=== PATIENT | female | born 1990 ===

== ENCOUNTER 2019-03-17 12:33 | Observation (INO) | payer SELFPAY ==
[2019-03-17] MEDS ORDERED: LACTATED RINGERS 1,000 ML ONE (13:19)
[2019-03-17 13:20] LABS: Hematocrit 38.6 % (30.3-42.9); Mean Corpuscular HGB Conc 34 % (30-34); Mean Corpuscular Volume 87 fl (79-97); Platelet Count 229 K/mm3 (140-440); Red Blood Count 4.44 M/mm3 (3.65-5.03); Red Cell Distribution Width 14.7 % (13.2-15.2)
[2019-03-17 13:46] LABS: Alanine Aminotransferase 15 units/L (7-56); Uric Acid 4.5 mg/dL (3.5-7.6)
[2019-03-17 13:51] LABS: Bacteria,Urine 4+ /HPF (Negative); Bilirubin,Urine NEG (Negative); Blood,Urine NEG (Negative); Color,Urine Straw (Yellow); Protein,Urine <15 mg/dL mg/dL (Negative); Urobilinogen,Urine < 2.0 mg/dL (<2.0)
[2019-03-17] MEDS ORDERED: MAGNESIUM SULFATE 4 GM/100 ML BAG IV ONE (14:26)
[2019-03-17] MEDS ORDERED: AMPICILLIN 2 GM in SODIUM CHLORIDE 0.9% 50 ML IV ONE (14:32)
[2019-03-17] MEDS ORDERED: AMPICILLIN/NS 2 GM/100 ML 2 GM/100 ML BAG IV ONE ×2 (15:00→18:17)
[2019-03-17] MEDS: BETAMET ACET/BETAMET NA PH 6 MG/ML INJ 5 ML MDV IM SCH (17:36)
--- NOTE | 2019-03-17 18:22 | Ultrasound Report ---
ULTRASOUND OBSTETRIC INDICATION / CLINICAL INFORMATION: jeffry. Clinical Gestational Age (GA): 32 weeks 3 days TECHNIQUE: Transabdominal. COMPARISON: None available. FINDINGS: There is a single intrauterine . Biparietal Diameter = 8.4 cm = 33 weeks, 5 day(s). Head Circumference = 30.2 cm = 33 weeks, 3 day(s). Abdominal Circumference = 29.8 cm = 33 weeks, 5 day(s). Femur Length = 6.1 cm = 31 weeks, 4 day(s). Average Ultrasound Age (AUA) = 33 weeks, 1 day(s). Heart Rate: 156 beats per minute. Estimated Weight in grams (if calculated): 2116 Estimated Weight Growth Percentile (if calculated): 81 Position: cephalic. Cervix: Not seen. Length in cm (if measured): Not measured Placenta: anterior and free of the os. Amniotic Fluid Volume: normal Amniotic Fluid Index (JEFFRY) in cm (if calculated): 11.4. Maternal Adnexa: Not visualized. BREATHING MOVEMENT = 2 GROSS BODY MOVEMENT = 2 TONE = 2 QUALITATIVE AMNIOTIC FLUID VOLUME = 2 TOTAL BIOPHYSICAL SCORE = 8/8 IMPRESSION: 1. Single, living intrauterine with estimated sonographic age of 33 weeks, 1 day(s). 2. Normal amniotic fluid index. 3. Normal biophysical profile. Signer Name: Medardo Ley MD Signed: 03/17/2019 6:17 PM Workstation Name: [id number]
[2019-03-17] MEDS: MAGNESIUM SULFATE 40GM/1000ML 40 GM/1,000 ML BAG IV SCH (18:26)
[2019-03-17] MEDS: AMPICILLIN/NS 1 GM/50 ML 1 GM/50 ML BAG IV SCH (22:17)
[2019-03-18] MEDS ORDERED: ONDANSETRON 4 MG/2 ML INJ IV PRN (00:34)
[2019-03-18] MEDS: AMPICILLIN/NS 1 GM/50 ML 1 GM/50 ML BAG IV SCH ×5 (02:13→17:51)
--- NOTE | 2019-03-18 10:26 | History and Physical Report ---
History of Present Illness Date of examination: 03/17/19 Date of admission: 03/17/19 12:34 Chief complaint: Was admitted for obs re elevated office BP at 32+4 wks gestation. History of present illness: 31 + wks. Preeclampsia Past History - Obstetrical History Expected Date of Delivery: 05/09/19 Actual Gestation: 32 Week(s) 4 Day(s) : 4 Medications and Allergies Allergies Allergy/AdvReac Type Severity Reaction Status Date / Time No Known Allergies Allergy Verified 03/17/19 12:37 Home Medications Medication Instructions Recorded Confirmed Last Taken Type Labetalol [Labetalol 100mg TAB] 100 mg PO BID #14 tablet 03/18/19 Unknown Rx Active Meds: Active Medications Betamethasone Acet/Betameth SodPhos (Celestone Soluspan) 12 mg IM Q24H LUC Stop: 03/18/19 15:01 Last Admin: 03/17/19 17:36 Dose: 12 mg Documented by: Magnesium Sulfate (Magnesium Sulfate 40gm/1000ml) 40 gm in 1,000 mls @ 25 mls/hr IV DIRECT LUC Last Admin: 03/17/19 18:26 Dose: 1 gm/hr, 25 mls/hr Documented by: Ampicillin Sodium (Ampicillin/Ns 1 Gm/50 Ml) 1 gm in 50 mls @ 50 mls/hr IV Q4HR LUC; Protocol Last Admin: 03/18/19 06:34 Dose: 50 mls/hr Documented by: Labetalol HCl (Labetalol) 100 mg PO BID LUC Last Admin: 03/17/19 22:17 Dose: 100 mg Documented by: Ondansetron HCl (Zofran) 4 mg IV Q8H PRN PRN Reason: Nausea And Vomiting Last Admin: 03/18/19 00:42 Dose: 4 mg Documented by: Review of Systems All systems: negative - Vital Signs Vital signs: Vital Signs Pulse BP 82 167/100 03/17/19 12:44 03/17/19 12:44 Temp Pulse Resp BP Pulse Ox 98.4 F 104 H 18 130/74 96 03/18/19 07:40 03/18/19 10:18 03/18/19 07:40 03/18/19 10:03 03/18/19 10:18 - Physical Exam Lungs: Positive: Normal air movement Abdomen: Positive: normal appearance, soft, distention. Negative: tenderness Deep Tendon Reflex Grade: Normal +2 - Obstetrical FHR: category 1 Uterine Contraction Pattern: Irregular Results Result Diagrams: 03/17/19 13:00 03/17/19 13:00 Abnormal lab results 03/17/19 03/18/19 03/18/19 Range/Units 13:00 00:41 05:45 Creatinine 0.5 L (0.7-1.2) mg/dL Magnesium 5.20 H 6.00 H (1.7-2.3) mg/dL Lactate Dehydrogenase 192 H (91-180) units/L All other labs normal. Assessment and Plan - Patient Problems (1) Preeclampsia Current Visit: Yes Status: Acute Plan to address problem: Mild preeclampsia, Told to see M as an outpatient.Will go home upon completion of 24hr hr urine sampling with labetalol and have bp rechecked in the office in 3 days.
[2019-03-18] MEDS ORDERED: LACTATED RINGERS 1,000 ML IV SCH (11:30)
[2019-03-18] MEDS ORDERED: LACTATED RINGERS 1,000 ML ONE (11:37)
[2019-03-18] MEDS: MAGNESIUM SULFATE 40GM/1000ML 40 GM/1,000 ML BAG IV SCH (15:29)
[2019-03-18] MEDS ORDERED: BETAMET ACET/BETAMET NA PH 6 MG/ML INJ 5 ML MDV IM ONE (17:43)
[2019-03-18] MEDS: BETAMET ACET/BETAMET NA PH 6 MG/ML INJ 5 ML MDV IM SCH (17:47)
--- NOTE | 2019-03-18 20:39 | Progress Note ---
Subjective - Subjective Date of service: 03/18/19 Interval history: Change of shift note Patient s/p 24 hour urine BP's stable, on magnesium Physical exam benign FHT category 1 plan for d/c magnesium,abx heplock IV labetalol PO CFM D/C home in [place] if stable Crystal Broussard MD Objective - Vital Signs Vital Signs: Vital Signs - 12hr 03/18/19 03/18/19 03/18/19 08:43 08:48 08:53 Temperature Pulse Rate 102 H 106 H 98 H Respiratory Rate Blood Pressure Blood Pressure [Left] O2 Sat by Pulse 98 96 96 Oximetry 03/18/19 03/18/19 03/18/19 08:58 09:03 09:08 Temperature Pulse Rate 99 H 105 H 110 H Respiratory Rate Blood Pressure Blood Pressure [Left] O2 Sat by Pulse 96 96 98 Oximetry 03/18/19 03/18/19 03/18/19 09:13 09:18 09:23 Temperature Pulse Rate 120 H 109 H 105 H Respiratory Rate Blood Pressure Blood Pressure [Left] O2 Sat by Pulse 97 97 97 Oximetry 03/18/19 03/18/19 03/18/19 09:28 09:33 09:38 Temperature Pulse Rate 105 H 105 H 102 H Respiratory Rate Blood Pressure Blood Pressure [Left] O2 Sat by Pulse 97 97 96 Oximetry 03/18/19 03/18/19 03/18/19 09:43 09:48 09:53 Temperature Pulse Rate 106 H 105 H 102 H Respiratory Rate Blood Pressure Blood Pressure [Left] O2 Sat by Pulse 96 97 96 Oximetry 03/18/19 03/18/19 03/18/19 09:58 10:03 10:08 Temperature Pulse Rate 110 H 105 H 108 H Respiratory Rate Blood Pressure 130/74 Blood Pressure [Left] O2 Sat by Pulse 96 97 96 Oximetry 03/18/19 03/18/19 03/18/19 10:13 10:18 10:23 Temperature Pulse Rate 105 H 104 H 107 H Respiratory Rate Blood Pressure Blood Pressure [Left] O2 Sat by Pulse 96 96 97 Oximetry 03/18/19 03/18/19 03/18/19 10:28 10:33 10:36 Temperature Pulse Rate 104 H 108 H 104 H Respiratory Rate Blood Pressure 130/74 Blood Pressure [Left] O2 Sat by Pulse 95 96 Oximetry 03/18/19 03/18/1919 10:38 10:43 10:44 Temperature Pulse Rate 108 H 100 H 102 H Respiratory Rate Blood Pressure Blood Pressure [Left] O2 Sat by Pulse 96 95 94 Oximetry 03/18/19 03/18/19 03/18/19 10:48 10:49 10:53 Temperature Pulse Rate 103 H 98 H 103 H Respiratory Rate Blood Pressure Blood Pressure [Left] O2 Sat by Pulse 96 94 96 Oximetry 03/18/19 03/18/19 03/18/19 10:56 10:58 11:02 Temperature Pulse Rate 103 H 99 H 98 H Respiratory Rate Blood Pressure Blood Pressure [Left] O2 Sat by Pulse 94 94 94 Oximetry 03/18/19 03/18/19 03/18/19 11:03 11:07 11:08 Temperature Pulse Rate 100 H 98 H 104 H Respiratory Rate Blood Pressure 116/62 Blood Pressure [Left] O2 Sat by Pulse 96 94 94 Oximetry 03/18/19 03/18/19 03/18/19 11:13 11:14 11:18 Temperature Pulse Rate 99 H 99 H 105 H Respiratory Rate Blood Pressure Blood Pressure [Left] O2 Sat by Pulse 95 94 97 Oximetry 03/18/19 03/18/19 03/18/19 11:23 11:26 11:28 Temperature Pulse Rate 106 H 98 H 107 H Respiratory Rate Blood Pressure Blood Pressure [Left] O2 Sat by Pulse 97 94 96 Oximetry 03/18/19 03/18/19 03/18/19 11:33 11:38 11:43 Temperature Pulse Rate 100 H 96 H 102 H Respiratory Rate Blood Pressure Blood Pressure [Left] O2 Sat by Pulse 95 95 96 Oximetry 03/18/19 03/18/19 03/18/19 11:48 11:53 11:58 Temperature Pulse Rate 100 H 96 H 103 H Respiratory Rate Blood Pressure Blood Pressure [Left] O2 Sat by Pulse 96 96 97 Oximetry 03/18/19 03/18/19 03/18/19 12:03 12:08 12:09 Temperature 98.2 F Pulse Rate 95 H 102 H 102 H Respiratory 18 Rate Blood Pressure 117/59 Blood Pressure 117/59 [Left] O2 Sat by Pulse 96 97 96 Oximetry 03/18/19 03/18/19 03/18/19 12:13 12:18 12:23 Temperature Pulse Rate 105 H 104 H 115 H Respiratory Rate Blood Pressure Blood Pressure [Left] O2 Sat by Pulse 98 98 97 Oximetry 03/18/19 03/18/19 03/18/19 12:28 12:33 12:38 Temperature Pulse Rate 115 H 112 H 110 H Respiratory Rate Blood Pressure Blood Pressure [Left] O2 Sat by Pulse 98 97 97 Oximetry 03/18/19 03/18/19 03/18/19 12:43 12:48 12:53 Temperature Pulse Rate 107 H 106 H 101 H Respiratory Rate Blood Pressure Blood Pressure [Left] O2 Sat by Pulse 98 97 97 Oximetry 03/18/19 03/18/19 03/18/19 12:58 13:03 13:08 Temperature Pulse Rate 96 H 106 H 103 H Respiratory Rate Blood Pressure Blood Pressure [Left] O2 Sat by Pulse 96 98 97 Oximetry 03/18/19 03/18/19 03/18/19 13:09 13:13 13:18 Temperature Pulse Rate 102 H 104 H 102 H Respiratory Rate Blood Pressure 122/70 Blood Pressure [Left] O2 Sat by Pulse 97 95 Oximetry 03/18/19 03/18/19 03/18/19 13:23 13:28 13:33 Temperature Pulse Rate 98 H 100 H 99 H Respiratory Rate Blood Pressure Blood Pressure [Left] O2 Sat by Pulse 96 97 96 Oximetry 03/18/19 03/18/19 03/18/19 13:38 13:43 13:48 Temperature Pulse Rate 98 H 97 H 96 H Respiratory Rate Blood Pressure Blood Pressure [Left] O2 Sat by Pulse 96 96 96 Oximetry 03/18/19 03/18/19 03/18/19 13:53 13:58 14:03 Temperature Pulse Rate 97 H 96 H 109 H Respiratory Rate Blood Pressure 109/64 Blood Pressure [Left] O2 Sat by Pulse 96 96 98 Oximetry 03/18/19 03/18/19 03/18/19 14:08 14:13 14:18 Temperature Pulse Rate 104 H 101 H 98 H Respiratory Rate Blood Pressure Blood Pressure [Left] O2 Sat by Pulse 97 97 97 Oximetry 03/18/19 03/18/19 03/18/19 14:23 14:28 14:33 Temperature Pulse Rate 102 H 100 H 96 H Respiratory Rate Blood Pressure Blood Pressure [Left] O2 Sat by Pulse 97 96 97 Oximetry 03/18/19 03/18/19 03/18/19 14:38 14:43 14:48 Temperature Pulse Rate 104 H 98 H 103 H Respiratory Rate Blood Pressure Blood Pressure [Left] O2 Sat by Pulse 96 97 97 Oximetry 03/18/19 03/18/19 03/18/19 14:53 14:58 15:03 Temperature Pulse Rate 102 H 98 H 102 H Respiratory Rate Blood Pressure Blood Pressure [Left] O2 Sat by Pulse 97 97 97 Oximetry 03/18/19 03/18/19 03/18/19 15:04 15:08 15:13 Temperature Pulse Rate 98 H 101 H 101 H Respiratory Rate Blood Pressure 124/66 Blood Pressure [Left] O2 Sat by Pulse 97 97 Oximetry 03/18/19 03/18/19 03/18/19 15:18 15:23 15:28 Temperature Pulse Rate 98 H 98 H 107 H Respiratory Rate Blood Pressure Blood Pressure [Left] O2 Sat by Pulse 96 97 97 Oximetry 03/18/19 03/18/19 03/18/19 15:33 15:38 15:43 Temperature Pulse Rate 101 H 102 H 109 H Respiratory Rate Blood Pressure Blood Pressure [Left] O2 Sat by Pulse 97 97 96 Oximetry 03/18/19 03/18/19 03/18/19 15:48 15:53 15:58 Temperature Pulse Rate 96 H 100 H 98 H Respiratory Rate Blood Pressure Blood Pressure [Left] O2 Sat by Pulse 96 94 95 Oximetry 03/18/19 03/18/19 03/18/19 15:59 16:03 16:05 Temperature 97.9 F Pulse Rate 98 H 98 H 104 H Respiratory 18 Rate Blood Pressure 116/66 Blood Pressure 116/66 [Left] O2 Sat by Pulse 94 96 96 Oximetry 03/18/19 03/18/19 03/18/19 16:06 16:08 16:13 Temperature Pulse Rate 102 H 105 H 107 H Respiratory Rate Blood Pressure Blood Pressure [Left] O2 Sat by Pulse 94 97 97 Oximetry 03/18/19 03/18/19 03/18/19 16:18 16:23 16:28 Temperature Pulse Rate 104 H 109 H 103 H Respiratory Rate Blood Pressure Blood Pressure [Left] O2 Sat by Pulse 96 97 97 Oximetry 03/18/19 03/18/19 03/18/19 16:33 16:38 16:43 Temperature Pulse Rate 104 H 105 H 105 H Respiratory Rate Blood Pressure Blood Pressure [Left] O2 Sat by Pulse 96 96 96 Oximetry 03/18/19 03/18/19 03/18/19 16:48 16:53 16:58 Temperature Pulse Rate 105 H 99 H 100 H Respiratory Rate Blood Pressure Blood Pressure [Left] O2 Sat by Pulse 97 96 96 Oximetry 03/18/19 03/18/19 03/18/19 17:03 17:08 17:13 Temperature Pulse Rate 105 H 102 H 111 H Respiratory Rate Blood Pressure 125/66 Blood Pressure [Left] O2 Sat by Pulse 97 96 97 Oximetry 03/18/19 03/18/19 03/18/19 17:18 17:23 17:28 Temperature Pulse Rate 113 H 113 H 111 H Respiratory Rate Blood Pressure Blood Pressure [Left] O2 Sat by Pulse 97 97 97 Oximetry 03/18/19 03/18/19 03/18/19 17:33 17:38 17:43 Temperature Pulse Rate 105 H 104 H 104 H Respiratory Rate Blood Pressure Blood Pressure [Left] O2 Sat by Pulse 96 96 97 Oximetry 03/18/19 03/18/19 03/18/19 17:48 17:53 17:58 Temperature Pulse Rate 110 H 99 H 103 H Respiratory Rate Blood Pressure Blood Pressure [Left] O2 Sat by Pulse 98 97 97 Oximetry 03/18/19 03/18/19 03/18/19 18:03 18:08 18:13 Temperature Pulse Rate 107 H 108 H 112 H Respiratory Rate Blood Pressure 130/67 Blood Pressure [Left] O2 Sat by Pulse 98 97 98 Oximetry 03/18/19 03/18/19 03/18/19 18:18 18:23 18:28 Temperature Pulse Rate 104 H 112 H 107 H Respiratory Rate Blood Pressure Blood Pressure [Left] O2 Sat by Pulse 97 97 96 Oximetry 03/18/19 03/18/19 03/18/19 18:33 18:38 18:43 Temperature Pulse Rate 115 H 102 H 108 H Respiratory Rate Blood Pressure Blood Pressure [Left] O2 Sat by Pulse 98 96 97 Oximetry 03/18/19 03/18/19 03/18/19 18:48 18:53 18:58 Temperature Pulse Rate 100 H 109 H 102 H Respiratory Rate Blood Pressure Blood Pressure [Left] O2 Sat by Pulse 96 97 95 Oximetry 03/18/19 03/18/19 03/18/19 19:03 19:08 19:13 Temperature Pulse Rate 104 H 103 H 107 H Respiratory Rate Blood Pressure 113/62 Blood Pressure [Left] O2 Sat by Pulse 96 97 97 Oximetry 03/18/19 03/18/19 03/18/19 19:18 19:23 19:28 Temperature Pulse Rate 104 H 103 H 101 H Respiratory Rate Blood Pressure Blood Pressure [Left] O2 Sat by Pulse 96 96 97 Oximetry 03/18/19 03/18/19 03/18/19 19:33 19:38 19:43 Temperature Pulse Rate 100 H 108 H 102 H Respiratory Rate Blood Pressure Blood Pressure [Left] O2 Sat by Pulse 96 96 95 Oximetry 03/18/19 03/18/19 03/18/19 19:48 19:53 19:58 Temperature Pulse Rate 100 H 101 H 112 H Respiratory Rate Blood Pressure 123/75 Blood Pressure [Left] O2 Sat by Pulse 96 97 95 Oximetry 03/18/19 03/18/19 03/18/19 20:03 20:08 20:13 Temperature Pulse Rate 103 H 107 H 107 H Respiratory Rate Blood Pressure Blood Pressure [Left] O2 Sat by Pulse 96 97 95 Oximetry 03/18/19 03/18/19 03/18/19 20:18 20:23 20:28 Temperature Pulse Rate 113 H 109 H 107 H Respiratory Rate Blood Pressure Blood Pressure [Left] O2 Sat by Pulse 96 96 96 Oximetry 03/18/19 20:33 Temperature Pulse Rate 104 H Respiratory Rate Blood Pressure Blood Pressure [Left] O2 Sat by Pulse 96 Oximetry - Labs Labs: Abnormal Labs 03/17/19 03/18/19 03/18/19 13:00 00:41 05:45 Creatinine 0.5 L Magnesium 5.20 H 6.00 H Lactate Dehydrogenase 192 H 03/18/19 03/18/19 12:07 19:39 Creatinine Magnesium 6.00 H 5.60 H Lactate Dehydrogenase Laboratory Results - last 24 hr 03/18/19 03/18/19 03/18/19 00:41 05:45 12:07 Magnesium 5.20 H 6.00 H 6.00 H 03/18/19 19:39 Magnesium 5.60 H
--- NOTE | 2019-03-19 06:10 | Progress Note ---
Subjective - Subjective Date of service: 03/19/19 Interval history: AM note: no complaints 25 hour urine protein ~500 BP <140/90 FHT Category 1 IUP at 32+5/7 weeks Miold preeclampsia stable for d/c to [facility] outpatient f/up Thursday03/21/19 Labor/Preeclampsia iglesia. Crystal Broussard MD Objective - Vital Signs Vital Signs: Vital Signs - 12hr 03/18/19 03/18/19 03/18/19 18:08 18:13 18:18 Pulse Rate 108 H 112 H 104 H Blood Pressure O2 Sat by Pulse 97 98 97 Oximetry 03/18/19 03/18/19 03/18/19 18:23 18:28 18:33 Pulse Rate 112 H 107 H 115 H Blood Pressure O2 Sat by Pulse 97 96 98 Oximetry 03/18/19 03/18/19 03/18/19 18:38 18:43 18:48 Pulse Rate 102 H 108 H 100 H Blood Pressure O2 Sat by Pulse 96 97 96 Oximetry 03/18/19 03/18/19 03/18/19 18:53 18:58 19:03 Pulse Rate 109 H 102 H 104 H Blood Pressure 113/62 O2 Sat by Pulse 97 95 96 Oximetry 03/18/19 03/18/19 03/18/19 19:08 19:13 19:18 Pulse Rate 103 H 107 H 104 H Blood Pressure O2 Sat by Pulse 97 97 96 Oximetry 03/18/19 03/18/19 03/18/19 19:23 19:28 19:33 Pulse Rate 103 H 101 H 100 H Blood Pressure O2 Sat by Pulse 96 97 96 Oximetry 03/18/19 03/18/19 03/18/19 19:38 19:43 19:48 Pulse Rate 108 H 102 H 100 H Blood Pressure O2 Sat by Pulse 96 95 96 Oximetry 03/18/19 03/18/19 03/18/19 19:53 19:58 20:03 Pulse Rate 101 H 112 H 103 H Blood Pressure 123/75 O2 Sat by Pulse 97 95 96 Oximetry 03/18/19 03/18/19 03/18/19 20:08 20:13 20:18 Pulse Rate 107 H 107 H 113 H Blood Pressure O2 Sat by Pulse 97 95 96 Oximetry 03/18/19 03/18/19 03/18/19 20:23 20:28 20:33 Pulse Rate 109 H 107 H 104 H Blood Pressure O2 Sat by Pulse 96 96 96 Oximetry 03/18/19 03/18/19 03/18/19 20:38 20:43 20:48 Pulse Rate 108 H 109 H 103 H Blood Pressure O2 Sat by Pulse 96 96 97 Oximetry 03/18/19 03/18/19 03/18/19 20:53 20:58 21:03 Pulse Rate 111 H 104 H 105 H Blood Pressure 137/74 O2 Sat by Pulse 97 96 96 Oximetry 03/18/19 03/18/19 03/18/19 21:08 21:13 21:18 Pulse Rate 105 H 105 H 111 H Blood Pressure O2 Sat by Pulse 96 96 97 Oximetry 03/18/19 03/18/19 03/18/19 21:23 21:28 21:33 Pulse Rate 105 H 108 H 106 H Blood Pressure O2 Sat by Pulse 96 97 96 Oximetry 03/18/19 03/18/19 03/18/19 21:38 21:43 21:48 Pulse Rate 108 H 107 H 111 H Blood Pressure O2 Sat by Pulse 96 96 96 Oximetry 03/18/19 03/18/19 03/19/19 21:53 23:02 01:02 Pulse Rate 113 H 88 104 H Blood Pressure 126/74 115/59 O2 Sat by Pulse 97 Oximetry 03/19/19 03/19/19 03/19/19 03:02 05:02 05:40 Pulse Rate 88 80 84 Blood Pressure 119/63 130/70 O2 Sat by Pulse 97 Oximetry 03/19/19 03/19/19 03/19/19 05:45 05:50 05:55 Pulse Rate 87 82 80 Blood Pressure O2 Sat by Pulse 96 96 96 Oximetry 03/19/19 06:00 Pulse Rate 86 Blood Pressure O2 Sat by Pulse 96 Oximetry - Labs Labs: Abnormal Labs 03/17/19 03/18/19 03/18/19 13:00 00:41 05:45 Creatinine 0.5 L Magnesium 5.20 H 6.00 H Lactate Dehydrogenase 192 H Ur Total Protein 24 Hr Urine Total Protein 03/18/19 03/18/19 03/18/19 12:07 18:34 19:39 Creatinine Magnesium 6.00 H 5.60 H Lactate Dehydrogenase Ur Total Protein 24 Hr 578.00 H Urine Total Protein 17 H 03/19/19 00:34 Creatinine Magnesium 3.70 H Lactate Dehydrogenase Ur Total Protein 24 Hr Urine Total Protein Laboratory Results - last 24 hr 03/18/19 03/18/19 03/18/19 05:45 12:07 18:34 Magnesium 6.00 H 6.00 H Urine Total Volume 3400 Ur Total Protein 24 Hr 578.00 H Urine Total Protein 17 H 03/18/19 03/19/19 19:39 00:34 Magnesium 5.60 H 3.70 H Urine Total Volume Ur Total Protein 24 Hr Urine Total Protein
[2019-03-19 09:03] VITALS: BP 113/57
[2019-03-19 12:28] LABS: Creatinine 24 Hour,Urine 1.6 (0.8-2.8); Creatinine,Urine 48.1 mg/dL (0.1-20.0)
== END 2019-03-19 09:44 | disposition home or self-care (01) ==
LOC: TRG 12:33 → LD 12:34 → TRG 12:34
PROVIDERS: ADMIT Obstetrics & Gynecology; ATTEND Obstetrics & Gynecology
DX: O14.93 Unspecified pre-eclampsia, third trimester (principal); Z3A.31 31 weeks gestation of pregnancy
CPT/HCPCS: 36415; 76816; 76819; 81001; 82565; 82570; 83615; 83735; 84156; 84450; 84460; 84550; 85027; 86850; 86900; 86901; 96365; 96366; 96368; 96372; 96375; G0378; J0290; J0702; J2405; J3475; J7120

== ENCOUNTER 2019-03-21 17:47 | Outpatient (CLI) | payer SELFPAY ==
[2019-03-21 18:12] VITALS: BP 113/71
[2019-03-21] MEDS ORDERED: LACTATED RINGERS 500 ML IV ONE (18:36)
[2019-03-21] MEDS ORDERED: TERBUTALINE 1 MG/1 ML INJ SUB-Q ONE ×2 (18:48→20:30)
[2019-03-21] MEDS ORDERED: D5W/LACTATED RINGERS 1,000 ML IV SCH (19:00)
[2019-03-21 19:38] LABS: Bilirubin,Urine NEG (Negative); Blood,Urine NEG (Negative); Color,Urine Yellow (Yellow); Protein,Urine <15 mg/dL mg/dL (Negative); Urobilinogen,Urine < 2.0 mg/dL (<2.0)
[2019-03-21 19:45] LABS: Amphetamine Screen,Urine PRESUMPTIVE NEGATIVE; Benzodiazepines Screen,Urine PRESUMPTIVE NEGATIVE; Cannabinoid Screen,Urine PRESUMPTIVE NEGATIVE; Cocaine Screen,Urine PRESUMPTIVE NEGATIVE; Methadone Screen,Urine PRESUMPTIVE NEGATIVE; Opiate Screen,Urine PRESUMPTIVE NEGATIVE
== END 2019-03-21 22:05 | disposition home or self-care (01) ==
LOC: TRG 17:47
PROVIDERS: ATTEND Obstetrics & Gynecology
DX: O62.9 Abnormality of forces of labor, unspecified (principal); O13.3 Gestational [pregnancy-induced] hypertension without significant proteinuria, third trimester; Z3A.33 33 weeks gestation of pregnancy
CPT/HCPCS: 36415; 59025; 80307; 81001; 82731; 96360; 96361; 96372; J3105; J7121

== ENCOUNTER 2019-04-19 12:31 | Inpatient (IN) | payer OTHER ==
[2019-04-19] MEDS ORDERED: TERBUTALINE 1 MG/1 ML INJ SUB-Q PRN (14:20)
[2019-04-19] MEDS ORDERED: MINERAL OIL 30 ML ORAL LIQD PO PRN (14:20)
[2019-04-19] MEDS ORDERED: ONDANSETRON 4 MG/2 ML INJ IV PRN (14:20)
[2019-04-19] MEDS ORDERED: ePHEDrine SULFATE 50 MG/1 ML INJ IV PRN (14:20)
[2019-04-19] MEDS ORDERED: fentaNYL 100 MCG/2 ML INJ IV PRN (14:20)
[2019-04-19] MEDS ORDERED: BUTORPHANOL 2 MG/1 ML INJ IV PRN (14:20)
[2019-04-19] MEDS ORDERED: TERBUTALINE 1 MG/1 ML INJ IVP PRN (14:20)
[2019-04-19 14:26] LABS: Bacteria,Urine 4+ /HPF (Negative); Bilirubin,Urine NEG (Negative); Blood,Urine NEG (Negative); Color,Urine Yellow (Yellow); Mucus,Urine FEW /HPF; Protein,Urine >2000 mg dL mg/dL (Negative); Urobilinogen,Urine < 2.0 mg/dL (<2.0)
[2019-04-19 14:28] LABS: Hematocrit 38.5 % (30.3-42.9); Mean Corpuscular HGB Conc 34 % (30-34); Mean Corpuscular Volume 88 fl (79-97); Platelet Count 215 K/mm3 (140-440); Red Blood Count 4.38 M/mm3 (3.65-5.03); Red Cell Distribution Width 15.6 % (13.2-15.2)
[2019-04-19] MEDS ORDERED: OXYTOCIN 20 UNIT/1000ML DRIP 20 UNITS/1,000 ML BAG IV SCH (15:00)
[2019-04-19] MEDS ORDERED: LACTATED RINGERS 1,000 ML IV SCH (15:00)
[2019-04-19 15:07] LABS: Alanine Aminotransferase 25 units/L (7-56); Uric Acid 7.1 mg/dL (3.5-7.6)
[2019-04-19] MEDS ORDERED: LIDOCAINE (2%) 20 MG/1 ML VIAL 20 ML MDV INFILTRATI ONE (15:20)
[2019-04-19] MEDS: LACTATED RINGERS 1,000 ML IV SCH (16:51)
[2019-04-19] MEDS: OXYTOCIN DRIP 30 UNITS/500 ML BAG IV SCH ×2 (16:58→17:58)
--- NOTE | 2019-04-19 18:45 | History and Physical Report ---
History of Present Illness Date of examination: 04/19/19 Date of admission: 04/19/19 12:32 Chief complaint: IOL secondary History of present illness: 28 yo, at 37.1 wks gestation, initiated care [facility] at 13.6 wks gestation. Her has been complicated by PIH. She was sent to PSYCHIATRIC from office today for IOL secondary to Pre-eclampsia. She reports positive FM. Denies VB or LOF. Labs: A+, antibody negative; RPR non-reactive; HBsAg non-reactive; Rubella immune; HIV negative; Gc/Chlamydia negative; PAP- LSIL; 1 hr Gtt - 127; GBS negative; AST 21; ALT 20 Past History Past Medical History: no pertinent history Past Surgical History: no surgical history [employer] History: abnormal PAP smear Family/Genetic History: hypertension (mother) Social history: , lives with family, full code. denies: smoking, alcohol abuse, prescription drug abuse, IV drug use - Obstetrical History Expected Date of Delivery: 05/09/19 Actual Gestation: 37 Week(s) 1 Day(s) : 4 Para: 2 Hx # Term Pregnancies: 2 Number of Pregnancies: 0 Spontaneous Abortions: 1 Induced : 0 Number of Living Children: 2 #1 Gender: Male year: Method of Delivery: Vaginal Gestational age at delivery: 40 Complications: none #2 Infant Gender: Female year: , Method of Delivery: Vaginal Complications: none #3 year: (SAB) Medications and Allergies Allergies Allergy/AdvReac Type Severity Reaction Status Date / Time No Known Allergies Allergy Verified 03/17/19 12:37 Home Medications Medication Instructions Recorded Confirmed Last Taken Type labetaloL [Labetalol 100mg TAB] 100 mg PO BID #14 tablet 03/18/19 Unknown Rx Active Meds: Active Medications Butorphanol Tartrate (Stadol) 2 mg IV Q2H PRN PRN Reason: Pain , Severe (7-10) Ephedrine Sulfate (Ephedrine Sulfate) 10 mg IV Q2M PRN PRN Reason: Hypotension Fentanyl (Sublimaze) 100 mcg IV Q2H PRN PRN Reason: Labor Pain Lactated Ringer's (Lactated Ringers) 1,000 mls @ 125 mls/hr IV DIRECT LUC Last Admin: 04/19/19 16:51 Dose: 125 mls/hr Documented by: Oxytocin/Sodium Chloride (Pitocin/Ns 20 Unit/1000ml Drip) 20 units in 1,000 mls @ 125 mls/hr IV DIRECT LUC Oxytocin/Sodium Chloride (Pitocin/Ns 30 Unit/500ml) 30 units in 500 mls @ 2 mls/hr IV TITR LUC; Protocol Last Admin: 04/19/19 17:58 Dose: 4 ml/hr, 4 mls/hr Documented by: Lactated Ringer's (Lactated Ringers) 1,000 mls @ 125 mls/hr IV DIRECT LUC Mineral Oil (Mineral Oil) 30 ml PO QHS PRN PRN Reason: Constipation Ondansetron HCl (Zofran) 4 mg IV Q8H PRN PRN Reason: Nausea And Vomiting Terbutaline Sulfate (Brethine) 0.25 mg SUB-Q ONCE PRN PRN Reason: Hyperstimulation/Hypertonicity Terbutaline Sulfate (Brethine) 0.25 mg IVP ONCE PRN PRN Reason: Hyperstimulation/Hypertonicity Review of Systems All systems: negative - Vital Signs Vital signs: Vital Signs Pulse BP 77 143/98 04/19/19 13:06 04/19/19 13:06 Temp Pulse Resp BP Pulse Ox 98.6 F 76 20 140/80 97 04/19/19 13:08 04/19/19 18:37 04/19/19 13:08 04/19/19 18:37 04/19/19 18:37 - Physical Exam Breasts: Positive: deferred Cardiovascular: Regular rate Lungs: Positive: Normal air movement Abdomen: Positive: other (gravid) Genitourinary (Female): Positive: normal external genitalia, normal perenium Vagina: Positive: normal moisture Uterus: Positive: enlarged (S>D) Anus/Rectum: Positive: normal perianal skin Extremities: Positive: normal Deep Tendon Reflex Grade: Normal +2 - Obstetrical FHR: category 1 Uterine Contraction Monitor Mode: External Cervical Dilatation: 3 Cervical Effacement Percentage: 50 station: -3 Uterine Contraction Pattern: Irregular Uterine Tone Measurement Phase: Resting Uterine Contraction Intensity: Mild Results Result Diagrams: 04/19/19 13:30 04/19/19 13:30 Abnormal lab results 04/19/19 04/19/19 Range/Units 13:30 13:30 RDW 15.6 H (13.2-15.2) % Creatinine 0.6 L (0.7-1.2) mg/dL Lactate Dehydrogenase 241 H (91-180) units/L All other labs normal. Assessment and Plan - Patient Problems (1) 37 weeks gestation of Current Visit: Yes Status: Acute (2) Preeclampsia Current Visit: No Status: Acute Plan to address problem: Admit to l & D Pitocin titration as tolerated Pain meds as desired Anticipate (3) BMI 35.0-35.9,adult Current Visit: Yes Status: Acute
[2019-04-20] MEDS: LACTATED RINGERS 1,000 ML IV SCH (00:48)
--- NOTE | 2019-04-20 01:57 | Progress Note ---
Assessment and Plan - Patient Problems (1) 37 weeks gestation of Current Visit: Yes Status: Acute (2) Preeclampsia Current Visit: No Status: Acute Plan to address problem: AROM @ 0135 of blood tinged fluids Continue Pitocin titration as tolerated Pain meds as desired Anticipate (3) BMI 35.0-35.9,adult Current Visit: Yes Status: Acute Subjective - Subjective Date of service: 04/20/19 (0135) Principal diagnosis: IOL Interval history: 28 yo, at 37.1 wks gestation, initiated care [facility] at 13.6 wks gestation. Her has been complicated by PIH. She was sent to [facility] from office today for IOL secondary to Pre-eclampsia. She reports positive FM. Denies VB or LOF. Labs: A+, antibody negative; RPR non-reactive; HBsAg non-reactive; Rubella immune; HIV negative; Gc/Chlamydia negative; PAP- LSIL; 1 hr Gtt - 127; GBS negative; AST 21; ALT 20 Patient reports: new complaints, movement normal, contractions (reports they are getting stronger) Objective - Vital Signs Vital Signs: Vital Signs - 12hr 04/19/19 04/19/19 04/19/19 14:09 14:22 14:37 Pulse Rate 75 74 74 Respiratory Rate Blood Pressure 134/86 141/89 134/85 O2 Sat by Pulse Oximetry 04/19/19 04/19/19 04/19/19 14:52 15:07 15:22 Pulse Rate 80 86 72 Respiratory Rate Blood Pressure 128/85 129/84 154/91 O2 Sat by Pulse Oximetry 04/19/19 04/19/19 04/19/19 15:37 15:53 16:07 Pulse Rate 73 71 88 Respiratory Rate Blood Pressure 128/81 140/75 127/77 O2 Sat by Pulse Oximetry 04/19/19 04/19/19 04/19/19 16:23 16:37 16:52 Pulse Rate 73 70 82 Respiratory Rate Blood Pressure 160/87 161/91 125/83 O2 Sat by Pulse Oximetry 04/19/19 04/19/19 04/19/19 17:08 17:22 17:37 Pulse Rate 76 80 73 Respiratory Rate Blood Pressure 138/85 123/76 128/84 O2 Sat by Pulse Oximetry 04/19/19 04/19/19 04/19/19 17:52 18:02 18:07 Pulse Rate 73 72 74 Respiratory Rate Blood Pressure 124/76 137/83 O2 Sat by Pulse 97 96 Oximetry 04/19/19 04/19/19 04/19/19 18:12 18:17 18:22 Pulse Rate 86 75 80 Respiratory Rate Blood Pressure O2 Sat by Pulse 97 97 97 Oximetry 04/19/19 04/19/19 04/19/19 18:23 18:27 18:32 Pulse Rate 72 77 71 Respiratory Rate Blood Pressure 155/86 O2 Sat by Pulse 97 97 Oximetry 04/19/19 04/19/19 04/19/19 18:37 18:42 18:47 Pulse Rate 76 77 81 Respiratory Rate Blood Pressure 140/80 O2 Sat by Pulse 97 98 97 Oximetry 04/19/19 04/19/19 04/19/19 18:52 18:53 18:57 Pulse Rate 79 78 77 Respiratory Rate Blood Pressure 150/93 O2 Sat by Pulse 97 95 Oximetry 04/19/19 04/19/19 04/19/19 18:59 19:02 19:07 Pulse Rate 96 H 73 84 Respiratory Rate Blood Pressure 129/78 O2 Sat by Pulse 90 97 97 Oximetry 04/19/19 04/19/19 04/19/19 19:12 19:17 19:22 Pulse Rate 81 72 84 Respiratory Rate Blood Pressure 128/81 O2 Sat by Pulse 97 96 96 Oximetry 04/19/19 04/19/19 04/19/19 19:27 19:32 19:37 Pulse Rate 75 80 76 Respiratory Rate Blood Pressure 134/84 O2 Sat by Pulse 97 96 97 Oximetry 04/19/19 04/19/19 04/19/19 19:42 19:44 19:47 Pulse Rate 81 78 74 Respiratory Rate Blood Pressure 169/100 160/95 O2 Sat by Pulse 97 98 Oximetry 04/19/19 04/19/19 04/19/19 19:52 19:56 19:57 Pulse Rate 79 84 75 Respiratory 22 Rate Blood Pressure 186/100 168/92 O2 Sat by Pulse 97 97 Oximetry 04/19/19 04/19/19 04/19/19 20:02 20:07 20:09 Pulse Rate 76 84 69 Respiratory Rate Blood Pressure 153/84 O2 Sat by Pulse 97 96 94 Oximetry 12/03/19 12/03/19 12/03/19 20:12 20:16 20:17 Pulse Rate 86 76 Respiratory Rate Blood Pressure O2 Sat by Pulse 96 93 96 Oximetry 04/19/19 04/19/19 04/19/19 20:22 20:23 20:27 Pulse Rate 81 69 65 Respiratory Rate Blood Pressure 180/103 169/95 O2 Sat by Pulse 98 98 Oximetry 04/19/19 04/19/19 04/19/19 20:32 20:35 20:37 Pulse Rate 61 70 64 Respiratory Rate Blood Pressure 169/95 166/97 O2 Sat by Pulse 97 97 Oximetry 04/19/19 04/19/19 04/19/19 20:42 20:46 20:47 Pulse Rate 72 60 69 Respiratory Rate Blood Pressure 167/100 O2 Sat by Pulse 96 94 97 Oximetry 04/19/19 04/19/19 04/19/19 20:52 20:57 21:02 Pulse Rate 68 58 L 65 Respiratory Rate Blood Pressure 156/99 O2 Sat by Pulse 97 99 97 Oximetry 04/19/19 04/19/19 04/19/19 21:07 21:08 21:12 Pulse Rate 61 70 85 Respiratory Rate Blood Pressure 161/100 O2 Sat by Pulse 95 91 96 Oximetry 04/19/19 04/19/19 04/19/19 21:17 21:19 21:22 Pulse Rate 63 60 66 Respiratory Rate Blood Pressure 164/103 144/98 O2 Sat by Pulse 97 96 Oximetry 04/19/19 04/19/19 04/19/19 21:27 21:32 21:37 Pulse Rate 78 71 69 Respiratory Rate Blood Pressure 156/105 O2 Sat by Pulse 99 96 95 Oximetry 04/19/19 04/19/19 04/19/19 21:42 21:47 21:52 Pulse Rate 63 60 60 Respiratory Rate Blood Pressure 174/93 O2 Sat by Pulse 96 96 96 Oximetry 04/19/19 04/19/19 04/19/19 21:57 22:02 22:07 Pulse Rate 70 58 L 73 Respiratory Rate Blood Pressure 173/103 O2 Sat by Pulse 98 97 97 Oximetry 04/19/19 04/19/19 04/19/19 22:08 22:17 22:20 Pulse Rate 62 72 65 Respiratory Rate Blood Pressure 173/103 O2 Sat by Pulse 97 94 Oximetry 04/19/19 04/19/19 04/19/19 22:22 22:23 22:24 Pulse Rate 65 65 65 Respiratory Rate Blood Pressure 176/97 171/95 O2 Sat by Pulse 98 Oximetry 04/19/19 04/19/19 04/19/19 22:27 22:32 22:37 Pulse Rate 66 64 72 Respiratory Rate Blood Pressure 171/90 O2 Sat by Pulse 96 96 97 Oximetry 04/19/19 04/19/19 04/19/19 22:42 22:44 22:46 Pulse Rate 68 64 68 Respiratory Rate Blood Pressure 151/89 170/102 O2 Sat by Pulse 96 Oximetry 04/19/19 04/19/19 04/19/19 22:47 22:50 22:52 Pulse Rate 67 68 65 Respiratory Rate Blood Pressure 159/99 O2 Sat by Pulse 97 94 95 Oximetry 04/19/19 04/19/19 04/19/19 22:57 22:59 23:02 Pulse Rate 69 68 64 Respiratory Rate Blood Pressure 182/98 182/98 O2 Sat by Pulse 96 95 Oximetry 04/19/19 04/19/19 04/19/19 23:05 23:07 23:12 Pulse Rate 72 68 66 Respiratory Rate Blood Pressure 155/91 O2 Sat by Pulse 94 94 98 Oximetry 04/19/19 04/19/19 04/19/19 23:16 23:17 23:22 Pulse Rate 62 65 64 Respiratory Rate Blood Pressure 137/84 O2 Sat by Pulse 98 98 Oximetry 04/19/19 04/19/19 04/19/19 23:27 23:32 23:37 Pulse Rate 66 76 65 Respiratory Rate Blood Pressure 138/85 O2 Sat by Pulse 98 96 96 Oximetry 04/19/19 04/19/19 04/19/19 23:42 23:47 23:52 Pulse Rate 69 67 67 Respiratory Rate Blood Pressure O2 Sat by Pulse 96 96 96 Oximetry 04/19/19 04/19/19 04/20/19 23:57 23:59 00:02 Pulse Rate 73 65 63 Respiratory Rate Blood Pressure 154/93 O2 Sat by Pulse 96 96 Oximetry 04/20/19 04/20/19 04/20/19 00:07 00:12 00:17 Pulse Rate 64 61 65 Respiratory Rate Blood Pressure O2 Sat by Pulse 96 97 97 Oximetry 04/20/19 04/20/19 04/20/19 00:22 00:27 00:29 Pulse Rate 73 71 62 Respiratory Rate Blood Pressure 151/87 O2 Sat by Pulse 97 96 Oximetry 04/20/19 04/20/19 04/20/19 00:32 00:37 00:42 Pulse Rate 64 63 63 Respiratory Rate Blood Pressure O2 Sat by Pulse 96 96 96 Oximetry 04/20/19 04/20/19 04/20/19 00:47 00:52 00:57 Pulse Rate 65 77 71 Respiratory Rate Blood Pressure O2 Sat by Pulse 96 96 96 Oximetry 04/20/19 04/20/19 04/20/19 00:59 01:02 01:07 Pulse Rate 67 71 63 Respiratory Rate Blood Pressure 176/91 O2 Sat by Pulse 97 96 Oximetry 04/20/19 04/20/19 04/20/19 01:12 01:17 01:22 Pulse Rate 74 73 68 Respiratory Rate Blood Pressure O2 Sat by Pulse 96 96 97 Oximetry 04/20/19 04/20/19 04/20/19 01:27 01:29 01:32 Pulse Rate 68 66 82 Respiratory Rate Blood Pressure 153/95 O2 Sat by Pulse 97 96 Oximetry 04/20/19 04/20/19 04/20/19 01:38 01:42 01:48 Pulse Rate 74 79 66 Respiratory Rate Blood Pressure O2 Sat by Pulse 99 99 99 Oximetry - Exam Breasts: deferred Cardiovascular: Regular rate Lungs: Normal air movement Abdomen: Present: other (gravid) FHR: category 2 (recurrent early decels, with moderate varibility) Uterine Contraction Monitor Mode: External Cervical Dilatation: 6 Cervical Effacement Percentage: 80 Uterine Contraction Frequency (min): -1 Uterine Contraction Duration: 2-4 Uterine Contraction Pattern: Irregular Uterine Contraction Intensity: Moderate Extremities: normal - Labs Labs: Abnormal Labs 04/19/19 04/19/19 13:30 13:30 RDW 15.6 H Creatinine 0.6 L Lactate Dehydrogenase 241 H Laboratory Results - last 24 hr 04/19/19 04/19/19 04/19/19 13:30 13:30 13:30 WBC 7.2 RBC 4.38 Hgb 13.0 Hct 38.5 MCV 88 MCH 30 MCHC 34 RDW 15.6 H Plt Count 215 Creatinine 0.6 L Estimated GFR > 60 Uric Acid 7.1 AST 28 ALT 25 Lactate Dehydrogenase 241 H Urine Color Urine Turbidity Urine pH Ur Specific [place] Urine Protein Urine Glucose (UA) Urine Ketones Urine Blood Urine Nitrite Urine Bilirubin Urine Urobilinogen Ur Leukocyte Esterase Urine WBC (Auto) Urine RBC (Auto) U Epithel Cells (Auto) Urine Bacteria (Auto) Urine Mucus Syphilis IgG Antibody Blood Type A POSITIVE Antibody Screen Negative 04/19/19 04/19/19 13:30 Unknown WBC RBC Hgb Hct MCV MCH MCHC RDW Plt Count Creatinine Estimated GFR Uric Acid AST ALT Lactate Dehydrogenase Urine Color Yellow Urine Turbidity Clear Urine pH 7.0 Ur Specific [place] 1.012 Urine Protein >2000 mg dl Urine Glucose (UA) Neg Urine Ketones Neg Urine Blood Neg Urine Nitrite Neg Urine Bilirubin Neg Urine Urobilinogen < 2.0 Ur Leukocyte Esterase Neg Urine WBC (Auto) 1.0 Urine RBC (Auto) 2.0 U Epithel Cells (Auto) 3.0 Urine Bacteria (Auto) 4+ Urine Mucus Few Syphilis IgG Antibody Non-reactive Blood Type Antibody Screen
[2019-04-20] MEDS ORDERED: labetaloL 100 MG/20 ML INJ MDV IV ONE (02:00)
[2019-04-20] MEDS ORDERED: LANOLIN/ZINC/DIMETHICONE (LANSINOH) 7 GM TP PRN (02:39)
[2019-04-20] MEDS ORDERED: PROMETHAZINE 25 MG TAB PO PRN (02:39)
[2019-04-20] MEDS ORDERED: oxyCODONE /ACETAMINOPHEN 5-325MG TAB PO PRN (02:39)
[2019-04-20] MEDS ORDERED: MAGNESIUM HYDROXIDE (MOM) ORAL LIQD UDC PO PRN (02:39)
[2019-04-20] MEDS ORDERED: diphenhydrAMINE 25 MG CAP PO PRN (02:39)
[2019-04-20] MEDS ORDERED: ONDANSETRON 4 MG/2 ML INJ IV PRN (02:39)
[2019-04-20] MEDS ORDERED: WITCH HAZEL/ GLYCERIN PAD TP PRN (02:39)
--- NOTE | 2019-04-20 02:48 | Procedure Note ---
OB Delivery Note - Delivery Date of Delivery: 04/20/19 (022) Surgeon: KIRSTEN ALFARO (CNM) Estimated blood loss: 200cc - Vaginal Delivery presentation: vertex Delivery position: OA (direct) Delivery induction: oxytocin Delivery augmentation: rupture of membranes (0135, blood-tinged fluids) Delivery monitor: external FHT, external uterine Route of delivery: Delivery placenta: spontaneous (228) Delivery cord: 3 umbilical vessels Episiotomy: none Delivery laceration: none Anesthesia: none Delivery comments: of viable, crying male infant, placed directly to maternal abdomen. Cord double clamped and cut by FOB after cessation of pulsation. Placenta spontaneously delivered, aldana, disposed per hospital policy. Uterus firm @ U-1, hemostasis maintained. Perineum intact. Mother and baby safe, stable and bonding well. - A at 1 minute: 8 at 5 minutes: 9 Infant Gender: Male (Weight: 2873 gms (6lbs 5.3 ozs) 18 inches)
[2019-04-20] MEDS: IBUPROFEN 600 MG TAB PO SCH ×2 (03:10→21:12)
[2019-04-20] MEDS: PRENATAL VIT27-FE FUMARATE-FOLIC ACID VIT TAB PO SCH (12:15)
[2019-04-20] MEDS: FERROUS SULFATE 325 MG TAB PO SCH (12:15)
[2019-04-20 15:48] LABS: Hematocrit 33.5 % (30.3-42.9); Hemoglobin 11.4 gm/dl (10.1-14.3)
[2019-04-21] MEDS: IBUPROFEN 600 MG TAB PO SCH ×3 (03:26→14:11)
--- NOTE | 2019-04-21 12:18 | Progress Note ---
Assessment and Plan A: PPD#1 s/p Stable P: Routine PP care Anticipate d/c today Subjective - Subjective Date of service: 04/21/19 Principal diagnosis: PPD#1 s/p Interval history: See H&P and delivery note Patient reports: appetite normal, voiding normally, pain well controlled, flatus, ambulating normally [place]: doing well, other (Breast/bottle) Objective - Vital Signs Latest vital signs: Vital Signs Temp Pulse Resp BP BP Pulse Ox 04/21/19 08:40 68 98 04/21/19 08:39 98.6 F 70 18 138/90 98 04/21/19 00:26 98.2 F 85 20 142/83 98 04/20/19 21:12 18 04/20/19 21:05 98.5 F 76 20 136/92 98 04/20/19 14:31 99.0 F 78 20 136/84 96 Intake and Output 04/20/19 04/21/19 04/21/19 23:59 07:59 15:59 Intake Total 480 Balance 480 Intake: Oral 480 Other: Total, Intake Amount 240 # Voids Void 1 1 - Exam Breasts: Present: normal Cardiovascular: Present: Regular rate, Normal S1, Normal S2, No murmurs Lungs: Present: Clear to auscultation, Normal air movement Abdomen: Present: normal appearance, soft. Absent: distention Vulva: both: normal Uterus: Present: normal, firm, fundal height below umbilicus (-1) Extremities: Present: normal Deep Tendon Reflex Grade: Normal +2
--- NOTE | 2019-04-21 12:19 | Discharge Summary ---
Providers - Providers Date of Admission: 04/19/19 12:32 Date of discharge: 04/21/19 Attending physician: RACHEL MISTRY MD Primary care physician: RACHEL MISTRY MD Hospitalization Reason for admission: induction of labor, IUP at term Delivery: Procedure details: See delivery note Episiotomy: none Laceration: none Other procedures: none complications: none Discharge diagnosis: IUP at term delivered baby: male Condition at discharge: Good Disposition: DC-01 TO HOME OR SELFCARE Plan - Provider Discharge Summary Activity: routine, no sex for 6 weeks, no heavy lifting 4 weeks, no strenuous exercise Diet: routine Instructions: routine Additional instructions: [] Smoking cessation referral if applicable(refer to patient education folder for contact #) [] Refer to [facility] Booklet Call your doctor immediately for: * Fever > 100.5 * Heavy vaginal bleeding ( >1 pad per hour) * Severe persistent headache * Shortness of breath * Reddened, hot, painful area to leg or breast * Drainage or odor from incision. * Keep incision clean and dry at all times and follow doctor's instructions regarding bathing/showering - Follow up plan Follow up: RACHEL MISTRY MD [Primary Care Provider] - 6 Weeks
[2019-04-21 14:07] VITALS: BP 134/88
[2019-04-21] MEDS: FERROUS SULFATE 325 MG TAB PO SCH (14:11)
[2019-04-21] MEDS: PRENATAL VIT27-FE FUMARATE-FOLIC ACID VIT TAB PO SCH (14:11)
== END 2019-04-21 16:30 | disposition home or self-care (01) | DRG 807 ==
LOC: TRG 12:31 → LD 12:32 → OB 04-20 06:20
PROVIDERS: ADMIT Obstetrics & Gynecology; ATTEND Obstetrics & Gynecology
PROC: 10907ZC Drainage of Amniotic Fluid, Therapeutic from Products of Conception, Via Natural or Artificial Opening (ICD-10-PCS; 2019-04-19)
PROC: 3E033VJ Introduction of Other Hormone into Peripheral Vein, Percutaneous Approach (ICD-10-PCS; 2019-04-19)
PROC: 10E0XZZ Delivery of Products of Conception, External Approach (ICD-10-PCS; principal; 2019-04-20)
DX: O13.4 Gestational [pregnancy-induced] hypertension without significant proteinuria, complicating childbirth (principal); Z37.0 Single live birth; Z3A.37 37 weeks gestation of pregnancy; Z82.49 Family history of ischemic heart disease and other diseases of the circulatory system; O14.94 Unspecified pre-eclampsia, complicating childbirth
CPT/HCPCS: 36415; 81001; 82565; 83615; 84450; 84460; 84550; 85014; 85018; 85027; 86592; 86850; 86900; 86901; G0378; A6250; J0595; J2590; J7120